=== PATIENT | female | born 1990 | race Caucasian/White ===

== ENCOUNTER 2017-11-24 08:22 | Emergency (ER) | payer MEDICAID ==
[~2017-11-24] VITALS: Ht 182.9 cm; Wt 67.8 kg
[2017-11-24 08:29] VITALS: BP 116/80
[2017-11-24] MEDS ORDERED: PENI500T2 PO (09:03)
== END 2017-11-24 09:09 | disposition home or self-care (01) ==
LOC: ER 08:23
DX: K08.89 Other specified disorders of teeth and supporting structures (principal); K01.1 Impacted teeth; Z87.11 Personal history of peptic ulcer disease; Z56.0 Unemployment, unspecified; Z88.6 Allergy status to analgesic agent
CPT/HCPCS: 99283

== ENCOUNTER 2018-01-01 07:18 | Emergency (ER) | payer MEDICAID ==
[~2018-01-01] VITALS: Ht 182.9 cm; Wt 68.0 kg
[2018-01-01 07:24] VITALS: BP 122/67
[2018-01-01] MEDS ORDERED: AMOX500C2 PO (07:50)
[2018-01-01] MEDS ORDERED: IBUP-1985 PO (07:52)
== END 2018-01-01 07:58 | disposition home or self-care (01) ==
LOC: ER 07:18
DX: K08.89 Other specified disorders of teeth and supporting structures (principal); Z56.0 Unemployment, unspecified; Z87.11 Personal history of peptic ulcer disease; Z88.6 Allergy status to analgesic agent
CPT/HCPCS: 99283